=== PATIENT | female | born 1995 | race Caucasian/White ===

== ENCOUNTER → 2019-07-30 | Outpatient (CLI) | payer OTHER ==
--- NOTE | 2019-07-30 11:51 | XR ---
EXAMINATION TYPE: XR lumbar spine 2 or 3V DATE OF EXAM: 07/30/2019 CLINICAL HISTORY: pain TECHNIQUE: Three views of the lumbar spine are submitted. COMPARISON: None. FINDINGS: There are 5 lumbar type vertebral bodies identified. The lumbar spine shows satisfactory alignment w ithout evidence of acute fracture or dislocation. Vertebral body heights are within normal limits. Disc spaces are within normal limits. The overlying soft tissue appears unremarkable. IMPRESSION: No acute fracture or dislocation is seen in the lumbar spine. ICD 10 NO FRACTURE, INITIAL EVALUATION
== END | disposition home or self-care (01) ==
LOC: RADXRMAIN 11:27
PROVIDERS: ATTEND Emergency Medicine
DX: S39.021A Laceration of muscle, fascia and tendon of abdomen, initial encounter (principal)
CPT/HCPCS: 72100